=== PATIENT | male | born 1945 | race Caucasian/White ===

== ENCOUNTER 2023-09-19 13:04 | Inpatient (IN) | payer MEDICARE ==
[~2023-09-19] VITALS: Ht 175.3 cm; Wt 77.2 kg
[2023-09-19 13:06] VITALS: BP 138/88
[2023-09-19] MEDS ORDERED: methylPREDNISolone sod succ 125 MG VIAL IV ONE (13:10)
[2023-09-19] MEDS ORDERED: Albuterol Sulf/Ipratropium 3 ML VIAL NEB ONE (13:10)
[2023-09-19 13:42] LABS: BASO % 0.4 % (0.0-1.0); EOS # 0.1 10*3/uL (0.0-0.4); EOS % 1.2 % (1.0-4.0); HEMATOCRIT 37.5 % (42.0-52.0); LYMPH # 0.6 10*3/uL (1.3-4.4); LYMPH % 7.1 % (27.0-41.0); MEAN CELL VOLUME 92.8 fl (80.0-94.0); MEAN CORPUSCULAR HGB 30.9 pg (27.0-31.0); MEAN CORPUSCULAR HGB CONC 33.3 g/dl (33.0-37.0); MEAN PLATELET VOLUME 9.7 fl (9.6-12.3); MONO # 0.5 10*3/uL (0.1-1.0); NEUT # 6.6 10*3/uL (2.3-7.9); PLATELET COUNT AUTOMATED 324 10*3/uL (130-400); RED BLOOD COUNT 4.04 10*6/uL (4.50-5.90); WHITE BLOOD COUNT 7.8 10*3/uL (4.8-10.8)
[2023-09-19 14:02] LABS: BUN 14 mg/dl (9-23); CHLORIDE 109 mmol/L (98-107); POTASSIUM 3.6 mmol/L (3.4-5.1)
[2023-09-19] MEDS ORDERED: Ceftriaxone Sodium 1 GM/10 ML SYR IV ONE (14:55)
[2023-09-19] MEDS ORDERED: AZITHROMYCIN 250 ML IV ONE (14:55)
[2023-09-19] MEDS ORDERED: BISACODYL 5 MG TAB PO PRN (15:15)
[2023-09-19] MEDS ORDERED: Acetaminophen/Hydrocodone 5 MG/325 MG TABLET PO PRN (15:15)
[2023-09-19] MEDS ORDERED: MORPHINE Sulfate 2 MG/ML SYR IV PRN (15:15)
[2023-09-19] MEDS ORDERED: ACETAMINOPHEN 650 MG SUPP R PRN (15:15)
[2023-09-19] MEDS ORDERED: BISACODYL 10 MG SUPP R PRN (15:15)
[2023-09-19] MEDS ORDERED: Ondansetron Hydrochloride 4 MG/2 ML VIAL IV PRN (15:15)
[2023-09-19] MEDS ORDERED: Magnesium Hydroxide 30 ML UDC PO PRN (15:15)
[2023-09-19] MEDS ORDERED: ACETAMINOPHEN 325 MG TAB PO PRN (15:15)
[2023-09-19] MEDS ORDERED: LEVOFLOXACIN 150 ML IV SCH (15:30)
[2023-09-19] MEDS ORDERED: VITAMIN D325 MCG PO (16:19)
[2023-09-19] MEDS ORDERED: VESICARE5 MG PO (16:20)
[2023-09-19] MEDS ORDERED: MULTI VITAMIN200 MCG PO (16:20)
[2023-09-19] MEDS ORDERED: CARDURA8 M1 PO (16:21)
[2023-09-19] MEDS ORDERED: PROSCAR5 M1 PO (16:21)
[2023-09-19] MEDS ORDERED: LIPITOR40 MG PO (16:22)
[2023-09-19] MEDS ORDERED: HYDR25T PO (16:22)
[2023-09-19] MEDS ORDERED: NEURONTIN300 MG PO (16:23)
[2023-09-19] MEDS ORDERED: PERCOCET 10-321 EACH PO (16:24)
[2023-09-19] MEDS ORDERED: IBUPROFEN600 MG PO (16:24)
[2023-09-19] MEDS ORDERED: Albuterol Sulf/Ipratropium 3 ML VIAL NEB PRN (16:25)
[2023-09-19] MEDS ORDERED: CELECOXIB100 M1 PO (16:26)
[2023-09-19 19:29] VITALS: BP 139/82
[2023-09-20 00:30] VITALS: BP 122/69; BP 122/79
[2023-09-20] MEDS ORDERED: TRAMADOL HCL100 MG PO (01:58)
[2023-09-20] MEDS ORDERED: ROPINIROLE HYDRO1 MG PO (02:00)
[2023-09-20] MEDS ORDERED: VITAMIN C500 M4 PO (02:01)
[2023-09-20 06:22] LABS: HEMATOCRIT 39.9 % (42.0-52.0); MEAN CORPUSCULAR HGB 29.6 pg (27.0-31.0); MEAN CORPUSCULAR HGB CONC 31.8 g/dl (33.0-37.0); MEAN PLATELET VOLUME 9.6 fl (9.6-12.3); PLATELET COUNT AUTOMATED 340 10*3/uL (130-400); RED BLOOD COUNT 4.29 10*6/uL (4.50-5.90); RED CELL DISTRI WIDTH 13.8 % (0-14.5); WHITE BLOOD COUNT 7.3 10*3/uL (4.8-10.8)
[2023-09-20 06:25] LABS: MANUAL DIFF REFLEX YES
[2023-09-20 06:50] LABS: ALKALINE PHOSPHATASE 87 U/L (46-116); BUN 12 mg/dl (9-23); CHLORIDE 108 mmol/L (98-107); CHOLESTEROL 115 mg/dL (<200); LDL CHOLESTEROL 46 mg/dL (9-159); POTASSIUM 3.9 mmol/L (3.4-5.1); SGPT/ALT 16 U/L (5-49); TOTAL PROTEIN 7.1 gm/dL (6.0-8.0); TRIGLYCERIDES 59 mg/dl (<150)
[2023-09-20 07:06] LABS: TOTAL CELLS COUNTED 100 #CELLS
[2023-09-20 07:07] LABS: BURR CELLS FEW; PLATELET SUFFICIENCY NORMAL (NORMAL)
[2023-09-20 08:00] VITALS: BP 156/87
[2023-09-20] MEDS ORDERED: Enoxaparin Sodium 40 MG/0.4 ML SYR SC SCH (10:00)
[2023-09-20] MEDS ORDERED: FINASTERIDE 5 MG TAB PO SCH (10:00)
[2023-09-20] MEDS ORDERED: Oxybutynin Chloride 5 MG TAB PO SCH (10:00)
[2023-09-20] MEDS ORDERED: ASCORBIC ACID 500 MG TAB PO SCH (10:00)
[2023-09-20] MEDS ORDERED: ATORVASTATIN CALCIUM 40 MG TABLET PO SCH (10:00)
[2023-09-20] MEDS ORDERED: Vitamin D 1,000 IU TAB (25 MCG) PO SCH (10:00)
[2023-09-20] MEDS ORDERED: HYDROCHLOROTHIAZIDE 25 MG TAB PO SCH (10:00)
[2023-09-20] MEDS ORDERED: DOXAZOSIN MESYLATE 4 MG TAB PO SCH (10:00)
[2023-09-20] MEDS ORDERED: GABAPENTIN 300 MG CAP PO SCH (10:00)
[2023-09-20] MEDS ORDERED: MULTIVITAMIN 1 TAB TAB PO SCH (10:00)
[2023-09-20] MEDS ORDERED: Ropinirole Hydrochloride 1 MG TAB PO SCH (10:00)
[2023-09-20 12:00] VITALS: BP 132/62
[2023-09-20] MEDS ORDERED: Ceftriaxone Sodium 1 GM in SYRINGE INFUSION 10 ML IV SCH (15:00)
[2023-09-20 16:00] VITALS: BP 134/64
[2023-09-20] MEDS ORDERED: AZITHROMYCIN 250 ML IV SCH (16:00)
[2023-09-20 20:00] VITALS: BP 105/63
[2023-09-21] VITALS: BP 100/56
[2023-09-21 06:24] LABS: BASO % 0.2 % (0.0-1.0); EOS # 0.1 10*3/uL (0.0-0.4); EOS % 0.7 % (1.0-4.0); HEMATOCRIT 37.7 % (42.0-52.0); LYMPH # 0.9 10*3/uL (1.3-4.4); LYMPH % 7.5 % (27.0-41.0); MEAN CELL VOLUME 93.8 fl (80.0-94.0); MEAN CORPUSCULAR HGB 30.1 pg (27.0-31.0); MEAN CORPUSCULAR HGB CONC 32.1 g/dl (33.0-37.0); MEAN PLATELET VOLUME 9.6 fl (9.6-12.3); MONO # 0.9 10*3/uL (0.1-1.0); MONO % 7.4 % (3.0-9.0); NEUT % 83.8 % (47.0-73.0); PLATELET COUNT AUTOMATED 346 10*3/uL (130-400); RED BLOOD COUNT 4.02 10*6/uL (4.50-5.90); WHITE BLOOD COUNT 11.9 10*3/uL (4.8-10.8)
[2023-09-21 06:47] LABS: BUN 14 mg/dl (9-23); CHLORIDE 107 mmol/L (98-107); POTASSIUM 4.1 mmol/L (3.4-5.1)
[2023-09-21 08:00] VITALS: BP 126/30
[2023-09-21 12:00] VITALS: BP 130/67
[2023-09-21] MEDS ORDERED: methylPREDNISolone sod succ 40 MG VIAL IV SCH (14:35)
[2023-09-21 15:31] LABS: ABG BASE EXCESS 2.5 mmol/L (-2.0-2.0); ARTERIAL BLOOD GAS PH 7.498 (7.35-7.45)
[2023-09-21 16:00] VITALS: BP 105/60
[2023-09-21 20:00] VITALS: BP 120/72
[2023-09-21] MEDS ORDERED: Ropinirole Hydrochloride 1 MG TAB PO ONE (22:55)
[2023-09-22] VITALS: BP 124/74
[2023-09-22 06:15] LABS: HEMATOCRIT 37.5 % (42.0-52.0); LYMPH # 0.4 10*3/uL (1.3-4.4); LYMPH % 6.9 % (27.0-41.0); MEAN CELL VOLUME 91.2 fl (80.0-94.0); MEAN CORPUSCULAR HGB 30.2 pg (27.0-31.0); MEAN CORPUSCULAR HGB CONC 33.1 g/dl (33.0-37.0); MEAN PLATELET VOLUME 9.8 fl (9.6-12.3); MONO # 0.2 10*3/uL (0.1-1.0); MONO % 3.1 % (3.0-9.0); NEUT # 4.8 10*3/uL (2.3-7.9); NEUT % 89.6 % (47.0-73.0); PLATELET COUNT AUTOMATED 347 10*3/uL (130-400); RED BLOOD COUNT 4.11 10*6/uL (4.50-5.90); RED CELL DISTRI WIDTH 13.8 % (0-14.5); WHITE BLOOD COUNT 5.4 10*3/uL (4.8-10.8)
[2023-09-22 06:41] LABS: ALKALINE PHOSPHATASE 76 U/L (46-116); BUN 16 mg/dl (9-23); CHLORIDE 108 mmol/L (98-107); SGPT/ALT 30 U/L (5-49); TOTAL PROTEIN 6.5 gm/dL (6.0-8.0)
[2023-09-22 08:00] VITALS: BP 121/66
[2023-09-22 08:07] LABS: IMMUNOGLOBULIN M, QNT 473 mg/dL (15-143)
[2023-09-22 12:00] VITALS: BP 108/62
[2023-09-22] MEDS ORDERED: hydrOXYzine pamoate 25 MG CAP PO PRN (14:10)
[2023-09-22 16:00] VITALS: BP 128/52
[2023-09-22] MEDS ORDERED: LORazepam 0.5 MG TAB PO ONE (19:00)
[2023-09-22 19:28] LABS: ABG BASE EXCESS -3.9 mmol/L (-2.0-2.0); ARTERIAL BLOOD GAS PH 7.393 (7.35-7.45)
[2023-09-22] MEDS ORDERED: SODIUM CHLORIDE 0.9% 100 ML BAG IV ONE (19:50)
[2023-09-22] MEDS ORDERED: IOHEXOL 350 MG/ML 100 ML VIAL IV ONE ×2 (19:50→20:18)
[2023-09-22 20:00] VITALS: BP 105/57
[2023-09-22] MEDS ORDERED: SODIUM CHLORIDE 0.9% 100 ML IV ONE (20:17)
[2023-09-22] MEDS ORDERED: Ropinirole Hydrochloride 1 MG TAB PO SCH (22:00)
[2023-09-23] VITALS (7 sets, daily range): BP systolic 98–168; BP diastolic 54–79
[2023-09-23] MEDS ORDERED: LORazepam 2 MG/ML VIAL IV ONE (00:20)
[2023-09-23] MEDS ORDERED: Haloperidol Lactate 5 MG/ML AMP IV ONE (03:10)
[2023-09-23] MEDS ORDERED: Haloperidol Lactate 5 MG/ML AMP IM ONE (03:35)
[2023-09-23] MEDS ORDERED: Ziprasidone Mesylate 20 MG VIAL IM ONE (05:35)
[2023-09-23] MEDS ORDERED: Water, Sterile 10 ML VIAL ONE (06:00)
[2023-09-23 06:51] LABS: HEMATOCRIT 36.6 % (42.0-52.0); MEAN CELL VOLUME 91.3 fl (80.0-94.0); MEAN CORPUSCULAR HGB 30.4 pg (27.0-31.0); MEAN CORPUSCULAR HGB CONC 33.3 g/dl (33.0-37.0); MEAN PLATELET VOLUME 9.6 fl (9.6-12.3); PLATELET COUNT AUTOMATED 407 10*3/uL (130-400); RED BLOOD COUNT 4.01 10*6/uL (4.50-5.90); RED CELL DISTRI WIDTH 13.7 % (0-14.5); WHITE BLOOD COUNT 13.7 10*3/uL (4.8-10.8)
[2023-09-23 06:53] LABS: MANUAL DIFF REFLEX YES
[2023-09-23 07:13] LABS: BILIRUBIN Negative (Negative); BLOOD Negative (Negative); CLARITY Clear (Clear); COLOR Yellow (Yellow); GLUCOSE Negative (Negative); KETONE Negative (Negative); LEUKO ESTERASE Negative (Negative); NITRITE Negative (Negative); PH 6.5 (4.5-8.0); SPECIFIC GRAVITY 1.025 (1.001-1.030); UROBILINOGEN 0.2 E.U./dl (0.0-1.0)
[2023-09-23 07:21] LABS: ALKALINE PHOSPHATASE 70 U/L (46-116); BUN 20 mg/dl (9-23); CHLORIDE 110 mmol/L (98-107); POTASSIUM 3.7 mmol/L (3.4-5.1); SGPT/ALT 40 U/L (5-49); TOTAL PROTEIN 5.9 gm/dL (6.0-8.0)
[2023-09-23 07:31] LABS: POLYCHROMASIA SLIGHT; TOTAL CELLS COUNTED 100 #CELLS
[2023-09-23 07:32] LABS: BURR CELLS MODERATE; OVALOCYTES FEW; PLATELET SUFFICIENCY HIGH (NORMAL)
[2023-09-23] MEDS ORDERED: Doxycycline Hyclate 100 MG,IV 1 EA in SODIUM CHLORIDE 0.9% 250 ML IV SCH (10:00)
[2023-09-23] MEDS ORDERED: Piperacillin Sodium/Tazobact 4.5 GM,IV 1 EA in SODIUM CHLORIDE 0.9% 100 ML IV SCH (12:00)
[2023-09-23 14:07] LABS: IGG SUBCLASS 1 412 mg/dL (248-810); IGG SUBCLASS 2 185 mg/dL (130-555); IGG SUBCLASS 3 31 mg/dL (15-102); IMMUNOGLOBULIN G, QNT 791 mg/dL (603-1613)
[2023-09-23] MEDS ORDERED: DEXMEDETOMIDINE IN 0.9 % NACL 100 ML IV SCH (14:25)
[2023-09-23] MEDS ORDERED: DIAZEPAM 10 MG/2 ML SYR IV PRN (14:50)
[2023-09-23 14:57] LABS: ABG BASE EXCESS -0.9 mmol/L (-2.0-2.0); ARTERIAL BLOOD GAS PH 7.451 (7.35-7.45)
[2023-09-23 16:08] LABS: ALDOLASE 7.3 U/L (3.3-10.3); ANGIOTENSIN-CONVERTING ENZYME 38 U/L (14-82)
[2023-09-23] MEDS ORDERED: Thiamine 200 MG/2 ML VIAL IV SCH (18:00)
[2023-09-24] VITALS: BP 126/69
[2023-09-24 04:00] VITALS: BP 126/66
[2023-09-24 07:18] LABS: ABG BASE EXCESS 0.2 mmol/L (-2.0-2.0); ARTERIAL BLOOD GAS PH 7.445 (7.35-7.45)
[2023-09-24 07:27] LABS: HEMATOCRIT 42.8 % (42.0-52.0); MEAN CORPUSCULAR HGB 30.4 pg (27.0-31.0); MEAN CORPUSCULAR HGB CONC 31.1 g/dl (33.0-37.0); MEAN PLATELET VOLUME 9.7 fl (9.6-12.3); PLATELET COUNT AUTOMATED 422 10*3/uL (130-400); RED BLOOD COUNT 4.38 10*6/uL (4.50-5.90); RED CELL DISTRI WIDTH 13.6 % (0-14.5); WHITE BLOOD COUNT 12.6 10*3/uL (4.8-10.8)
[2023-09-24 07:30] LABS: MANUAL DIFF REFLEX YES; MEAN CELL VOLUME 97.7 fl (80.0-94.0)
[2023-09-24 07:46] LABS: ALKALINE PHOSPHATASE 76 U/L (46-116); BUN 16 mg/dl (9-23); BURR CELLS MODERATE; CHLORIDE 111 mmol/L (98-107); OVALOCYTES FEW; PLATELET SUFFICIENCY HIGH (NORMAL); POLYCHROMASIA SLIGHT; POTASSIUM 4.3 mmol/L (3.4-5.1); SCHISTOCYTES FEW; SGPT/ALT 47 U/L (5-49); TOTAL CELLS COUNTED 100 #CELLS; TOTAL PROTEIN 6.4 gm/dL (6.0-8.0)
[2023-09-24 08:00] VITALS: BP 113/63
[2023-09-24] MEDS ORDERED: Water, Sterile 10 ML VIAL IV PRN (09:00)
[2023-09-24] MEDS ORDERED: LORazepam 2 MG/ML VIAL IV PRN (09:00)
[2023-09-24 12:28] VITALS: BP 90/54
[2023-09-24] MEDS ORDERED: Thiamine 200 MG/2 ML VIAL IV SCH (14:00)
[2023-09-24 16:00] VITALS: BP 101/49
[2023-09-24 19:40] VITALS: BP 93/45
[2023-09-25] VITALS: BP 107/66
[2023-09-25 04:00] VITALS: BP 125/89
[2023-09-25 04:40] LABS: HEMATOCRIT 36.4 % (42.0-52.0); MEAN CORPUSCULAR HGB 30.1 pg (27.0-31.0); MEAN CORPUSCULAR HGB CONC 32.7 g/dl (33.0-37.0); MEAN PLATELET VOLUME 9.5 fl (9.6-12.3); PLATELET COUNT AUTOMATED 375 10*3/uL (130-400); RED BLOOD COUNT 3.96 10*6/uL (4.50-5.90); RED CELL DISTRI WIDTH 13.7 % (0-14.5); WHITE BLOOD COUNT 13.7 10*3/uL (4.8-10.8)
[2023-09-25 04:41] LABS: MANUAL DIFF REFLEX YES; MEAN CELL VOLUME 91.9 fl (80.0-94.0)
[2023-09-25 04:58] LABS: ALKALINE PHOSPHATASE 63 U/L (46-116); BUN 25 mg/dl (9-23); CHLORIDE 110 mmol/L (98-107); POTASSIUM 4.1 mmol/L (3.4-5.1); SGPT/ALT 53 U/L (5-49); TOTAL PROTEIN 5.3 gm/dL (6.0-8.0)
[2023-09-25 05:04] LABS: PLATELET SUFFICIENCY NORMAL (NORMAL); TOTAL CELLS COUNTED 100 #CELLS
[2023-09-25 08:00] VITALS: BP 129/68
[2023-09-25 12:00] VITALS: BP 124/81
[2023-09-25 16:00] VITALS: BP 104/52
[2023-09-25] MEDS ORDERED: methylPREDNISolone sod succ 40 MG VIAL IV SCH (18:00)
[2023-09-25 20:00] VITALS: BP 118/64
[2023-09-26] VITALS: BP 119/55
[2023-09-26] MEDS ORDERED: Loperamide Hydrochloride 2 MG CAP PO ONE ×2 (02:00→21:10)
[2023-09-26 08:00] VITALS: BP 137/71
[2023-09-26 12:00] VITALS: BP 94/57
[2023-09-26 16:00] VITALS: BP 105/55
[2023-09-26 20:00] VITALS: BP 124/64
[2023-09-27] VITALS: BP 95/45
[2023-09-27 08:00] VITALS: BP 97/44
[2023-09-27] MEDS ORDERED: methylPREDNISolone sod succ 40 MG VIAL IV SCH (10:00)
[2023-09-27 12:00] VITALS: BP 90/44
[2023-09-27 20:00] VITALS: BP 107/54
[2023-09-28] VITALS: BP 114/51
[2023-09-28 06:09] LABS: BASO % 0.1 % (0.0-1.0); EOS # 0.3 10*3/uL (0.0-0.4); EOS % 1.9 % (1.0-4.0); HEMATOCRIT 36.4 % (42.0-52.0); LYMPH # 1.3 10*3/uL (1.3-4.4); LYMPH % 8.9 % (27.0-41.0); MEAN CELL VOLUME 92.4 fl (80.0-94.0); MEAN CORPUSCULAR HGB 30.2 pg (27.0-31.0); MEAN CORPUSCULAR HGB CONC 32.7 g/dl (33.0-37.0); MONO # 0.9 10*3/uL (0.1-1.0); MONO % 6.5 % (3.0-9.0); NEUT # 11.8 10*3/uL (2.3-7.9); NEUT % 81.8 % (47.0-73.0); PLATELET COUNT AUTOMATED 407 10*3/uL (130-400); RED BLOOD COUNT 3.94 10*6/uL (4.50-5.90); RED CELL DISTRI WIDTH 13.4 % (0-14.5); WHITE BLOOD COUNT 14.4 10*3/uL (4.8-10.8)
[2023-09-28 08:00] VITALS: BP 97/39
[2023-09-28 12:00] VITALS: BP 92/50
[2023-09-28 16:00] VITALS: BP 132/63
[2023-09-28 20:00] VITALS: BP 118/59
[2023-09-29] VITALS: BP 115/53
[2023-09-29 06:06] LABS: BUN 16 mg/dl (9-23); CHLORIDE 110 mmol/L (98-107)
[2023-09-29 06:11] LABS: BASO % 0.2 % (0.0-1.0); EOS # 0.1 10*3/uL (0.0-0.4); HEMATOCRIT 33.5 % (42.0-52.0); LYMPH # 1.1 10*3/uL (1.3-4.4); LYMPH % 9.1 % (27.0-41.0); MEAN CELL VOLUME 92.3 fl (80.0-94.0); MEAN CORPUSCULAR HGB 30.3 pg (27.0-31.0); MEAN CORPUSCULAR HGB CONC 32.8 g/dl (33.0-37.0); MEAN PLATELET VOLUME 10.1 fl (9.6-12.3); MONO # 0.7 10*3/uL (0.1-1.0); MONO % 5.8 % (3.0-9.0); NEUT % 82.7 % (47.0-73.0); PLATELET COUNT AUTOMATED 393 10*3/uL (130-400); RED BLOOD COUNT 3.63 10*6/uL (4.50-5.90); RED CELL DISTRI WIDTH 13.5 % (0-14.5); WHITE BLOOD COUNT 12.1 10*3/uL (4.8-10.8)
[2023-09-29 08:00] VITALS: BP 128/62
[2023-09-29 12:00] VITALS: BP 96/55
[2023-09-29 16:00] VITALS: BP 119/40
[2023-09-29 20:00] VITALS: BP 111/53
[2023-09-29] MEDS ORDERED: Doxycycline Hyclate 100 MG CAP PO SCH (22:00)
[2023-09-29] MEDS ORDERED: Amoxicillin/Clavulanate Pota 875 MG TAB PO SCH (22:00)
[2023-09-30] VITALS: BP 114/52
[2023-09-30 05:09] LABS: BUN 14 mg/dl (9-23); CHLORIDE 110 mmol/L (98-107); POTASSIUM 4.1 mmol/L (3.4-5.1)
[2023-09-30 06:21] LABS: BASO % 0.2 % (0.0-1.0); EOS # 0.3 10*3/uL (0.0-0.4); EOS % 1.7 % (1.0-4.0); HEMATOCRIT 37.2 % (42.0-52.0); LYMPH # 1.7 10*3/uL (1.3-4.4); LYMPH % 11.6 % (27.0-41.0); MEAN CELL VOLUME 94.7 fl (80.0-94.0); MEAN CORPUSCULAR HGB 30.3 pg (27.0-31.0); NEUT # 11.2 10*3/uL (2.3-7.9); NEUT % 77.9 % (47.0-73.0); PLATELET COUNT AUTOMATED 407 10*3/uL (130-400); RED BLOOD COUNT 3.93 10*6/uL (4.50-5.90); RED CELL DISTRI WIDTH 13.6 % (0-14.5); WHITE BLOOD COUNT 14.4 10*3/uL (4.8-10.8)
[2023-09-30 08:00] VITALS: BP 108/47
[2023-09-30] MEDS ORDERED: predniSONE 20 MG TAB PO SCH (10:00)
[2023-09-30] MEDS ORDERED: predniSONE 10 MG TAB PO SCH (10:00)
[2023-09-30 12:00] VITALS: BP 129/69
[2023-09-30 16:00] VITALS: BP 112/73
[2023-09-30 20:00] VITALS: BP 103/51
[2023-10-01] VITALS: BP 109/61
[2023-10-01 04:47] LABS: BASO % 0.2 % (0.0-1.0); EOS # 0.2 10*3/uL (0.0-0.4); EOS % 1.6 % (1.0-4.0); HEMATOCRIT 35.9 % (42.0-52.0); LYMPH # 1.9 10*3/uL (1.3-4.4); MEAN CELL VOLUME 93.5 fl (80.0-94.0); MEAN CORPUSCULAR HGB 29.7 pg (27.0-31.0); MEAN CORPUSCULAR HGB CONC 31.8 g/dl (33.0-37.0); MEAN PLATELET VOLUME 9.4 fl (9.6-12.3); MONO # 0.9 10*3/uL (0.1-1.0); MONO % 7.3 % (3.0-9.0); NEUT # 9.6 10*3/uL (2.3-7.9); NEUT % 74.3 % (47.0-73.0); PLATELET COUNT AUTOMATED 398 10*3/uL (130-400); RED BLOOD COUNT 3.84 10*6/uL (4.50-5.90); RED CELL DISTRI WIDTH 13.5 % (0-14.5); WHITE BLOOD COUNT 12.9 10*3/uL (4.8-10.8)
[2023-10-01 05:07] LABS: BUN 16 mg/dl (9-23); CHLORIDE 107 mmol/L (98-107); POTASSIUM 4.2 mmol/L (3.4-5.1)
[2023-10-01 08:00] VITALS: BP 108/56
[2023-10-01] MEDS ORDERED: AMOX-CLAV 875-1 EACH PO (08:40)
[2023-10-01] MEDS ORDERED: DOXYCYCLINE MO100 MG PO (08:40)
[2023-10-01] MEDS ORDERED: PREDNISONE10 MG PO (08:40)
[2023-10-01] MEDS ORDERED: VENT7GM INH (08:40)
[2023-10-01] MEDS ORDERED: THIAMINE HCL100 MG PO (09:40)
[2023-10-01 11:56] VITALS: BP 104/48
[2023-10-01 16:00] VITALS: BP 106/55
[2023-10-01 20:00] VITALS: BP 99/61
[2023-10-02] VITALS: BP 114/55
[2023-10-02 08:00] VITALS: BP 109/50
[2023-10-02 12:00] VITALS: BP 93/51
[2023-10-03] MEDS ORDERED: predniSONE 10 MG TAB PO SCH (10:00)
[2023-10-06] MEDS ORDERED: predniSONE 20 MG TAB PO SCH (10:00)
[2023-10-09] MEDS ORDERED: predniSONE 10 MG TAB PO SCH (10:00)
== END 2023-10-02 18:57 | DRG 871 ==
LOC: ED 13:04 → ICCU 14:58 → 4E 14:58 → EDHOLD 14:58 → 4E 23:48 → ICCU 09-22 21:40 → 4E 09-22 23:13 → ICCU 09-23 14:43 → 4E 09-28 15:50
PROVIDERS: Internal Medicine; Internal Medicine Critical Care Medicine; Physician Assistant Medical; Student in an Organized Health Care Education/Training Program; ADMIT Family Medicine; ATTEND Family Medicine
PROC: 5A0935A Assistance with Respiratory Ventilation, Less than 24 Consecutive Hours, High Flow/Velocity Cannula (ICD-10-PCS; principal; 2023-09-20)
PROC: 5A0935A Assistance with Respiratory Ventilation, Less than 24 Consecutive Hours, High Flow/Velocity Cannula (ICD-10-PCS; 2023-09-21)
PROC: 5A0935A Assistance with Respiratory Ventilation, Less than 24 Consecutive Hours, High Flow/Velocity Cannula (ICD-10-PCS; 2023-09-22)
PROC: 5A09357 Assistance with Respiratory Ventilation, Less than 24 Consecutive Hours, Continuous Positive Airway Pressure (ICD-10-PCS; 2023-09-22)
PROC: 5A09357 Assistance with Respiratory Ventilation, Less than 24 Consecutive Hours, Continuous Positive Airway Pressure (ICD-10-PCS; 2023-09-23)
PROC: 5A09357 Assistance with Respiratory Ventilation, Less than 24 Consecutive Hours, Continuous Positive Airway Pressure (ICD-10-PCS; 2023-09-24)
PROC: 5A09357 Assistance with Respiratory Ventilation, Less than 24 Consecutive Hours, Continuous Positive Airway Pressure (ICD-10-PCS; 2023-09-25)
PROC: 5A0945A Assistance with Respiratory Ventilation, 24-96 Consecutive Hours, High Flow/Velocity Cannula (ICD-10-PCS; 2023-09-26)
PROC: 5A0935A Assistance with Respiratory Ventilation, Less than 24 Consecutive Hours, High Flow/Velocity Cannula (ICD-10-PCS; 2023-09-29)
PROC: 5A0935A Assistance with Respiratory Ventilation, Less than 24 Consecutive Hours, High Flow/Velocity Cannula (ICD-10-PCS; 2023-09-30)
DX: A41.9 Sepsis, unspecified organism (principal); J15.9 Unspecified bacterial pneumonia; J69.0 Pneumonitis due to inhalation of food and vomit; J96.21 Acute and chronic respiratory failure with hypoxia; I47.29 Other ventricular tachycardia; J90 Pleural effusion, not elsewhere classified; F10.131 Alcohol abuse with withdrawal delirium; J67.9 Hypersensitivity pneumonitis due to unspecified organic dust; E87.8 Other disorders of electrolyte and fluid balance, not elsewhere classified; R73.9 Hyperglycemia, unspecified; I35.0 Nonrheumatic aortic (valve) stenosis; I10 Essential (primary) hypertension; E78.5 Hyperlipidemia, unspecified; N40.0 Benign prostatic hyperplasia without lower urinary tract symptoms; G62.9 Polyneuropathy, unspecified; I44.4 Left anterior fascicular block; I49.1 Atrial premature depolarization; Z20.822 Contact with and (suspected) exposure to COVID-19; Y90.9 Presence of alcohol in blood, level not specified; R53.81 Other malaise; G25.81 Restless legs syndrome; Z82.5 Family history of asthma and other chronic lower respiratory diseases; Z79.899 Other long term (current) drug therapy

== ENCOUNTER 2024-02-13 15:28 | Emergency (ER) | payer MEDICARE ==
[~2024-02-13] VITALS: Ht 175.2 cm; Wt 86.2 kg
[2024-02-13 16:45] LABS: BASO % 0.4 % (0.0-1.0); EOS # 0.4 10*3/uL (0.0-0.4); EOS % 5.6 % (1.0-4.0); HEMATOCRIT 39.9 % (42.0-52.0); MEAN CELL VOLUME 92.4 fl (80.0-94.0); MEAN CORPUSCULAR HGB 28.9 pg (27.0-31.0); MEAN CORPUSCULAR HGB CONC 31.3 g/dl (33.0-37.0); MEAN PLATELET VOLUME 9.9 fl (9.6-12.3); MONO # 0.7 10*3/uL (0.1-1.0); MONO % 9.9 % (3.0-9.0); NEUT % 68.1 % (47.0-73.0); PLATELET COUNT AUTOMATED 218 10*3/uL (130-400); RED BLOOD COUNT 4.32 10*6/uL (4.50-5.90); RED CELL DISTRI WIDTH 12.6 % (0-14.5); WHITE BLOOD COUNT 7.4 10*3/uL (4.8-10.8)
[2024-02-13 17:04] LABS: BUN 17 mg/dl (9-23); CHLORIDE 111 mmol/L (98-107); POTASSIUM 3.9 mmol/L (3.4-5.1)
== END 2024-02-13 18:11 | disposition home or self-care (01) ==
LOC: ED 15:28
PROVIDERS: Emergency Medicine
DX: R42 Dizziness and giddiness (principal); E78.5 Hyperlipidemia, unspecified; F10.10 Alcohol abuse, uncomplicated; Z98.890 Other specified postprocedural states; Z90.89 Acquired absence of other organs

== ENCOUNTER → 2024-02-13 | Outpatient (CLI) | payer MEDICARE ==
[~2024-02-13] MED LIST: AMOX-CLAV 875-1 EACH PO; CARDURA8 M1 PO; CELECOXIB100 M1 PO; DOXYCYCLINE MO100 MG PO; HYDR25T PO; IBUPROFEN600 MG PO; LIPITOR40 MG PO; MULTI VITAMIN200 MCG PO; NEURONTIN300 MG PO; PERCOCET 10-321 EACH PO; PREDNISONE10 MG PO; PROSCAR5 M1 PO; ROPINIROLE HYDRO1 MG PO; THIAMINE HCL100 MG PO; TRAMADOL HCL100 MG PO; VENT7GM INH; VESICARE5 MG PO; VITAMIN C500 M4 PO; VITAMIN D325 MCG PO
== END | disposition home or self-care (01) ==
LOC: RESCLI 00:33
PROVIDERS: ATTEND Student in an Organized Health Care Education/Training Program
DX: R55 Syncope and collapse (principal); M54.16 Radiculopathy, lumbar region; M12.811 Other specific arthropathies, not elsewhere classified, right shoulder; F10.90 Alcohol use, unspecified, uncomplicated; Z98.890 Other specified postprocedural states; Z79.899 Other long term (current) drug therapy; Y90.9 Presence of alcohol in blood, level not specified

== ENCOUNTER → 2024-09-21 | Outpatient (CLI) | payer MEDICARE | END | disposition home or self-care (01) | LOC: US 14:42 | PROVIDERS: ATTEND Urology | DX: N28.1 Cyst of kidney, acquired (principal); N28.89 Other specified disorders of kidney and ureter ==

== ENCOUNTER → 2024-11-06 | Outpatient (CLI) | payer MEDICARE | END | disposition home or self-care (01) | LOC: CT 15:00 | PROVIDERS: ATTEND Nurse Practitioner | DX: K57.30 Diverticulosis of large intestine without perforation or abscess without bleeding (principal); N20.0 Calculus of kidney; I25.10 Atherosclerotic heart disease of native coronary artery without angina pectoris ==

== ENCOUNTER → 2025-02-12 | Outpatient (CLI) | payer MEDICARE | END | disposition home or self-care (01) | LOC: CT 10:34 | PROVIDERS: ATTEND Urology | DX: N28.1 Cyst of kidney, acquired (principal); N20.0 Calculus of kidney; K57.90 Diverticulosis of intestine, part unspecified, without perforation or abscess without bleeding; J98.11 Atelectasis; R91.1 Solitary pulmonary nodule; N32.89 Other specified disorders of bladder ==